=== PATIENT | male | born 2000 | race Two or more races ===

== ENCOUNTER → 2024-08-30 | Outpatient (CLI) | payer MEDICAID, SELFPAY ==
--- NOTE | 2024-08-30 09:00 | XR_ITS ---
Examination: Abdomen sonogram, complete Date and time of exam: August 30, 2024 0907 hours INDICATIONS: Diagnosis fatty liver 6 months ago. Technique: Multiple real-time grayscale transabdominal sonographic images of the abdomen have been obtained. Findings: Normal gallbladder Normal common bile duct 0.3 cm Pancreas obscured by bowel gas Aorta not enlarged Liver 15.6 cm fatty infiltration no focal liver lesions Normal hepatopedal portal venous flow Patent IVC Right kidney 11.7 x 4.8 x 4.7 cm cortex 1.4 cm Left kidney 10.1 x 5.4 x 5.9 cm cortex 1.4 cm No hydronephrosis or renal calculi Spleen 10.6 cm IMPRESSION: Fatty liver, no focal liver lesions
== END | disposition home or self-care (01) ==
PROVIDERS: PCP Nurse Practitioner Primary Care; Referring Provider Nurse Practitioner Primary Care; Visit Provider Nurse Practitioner Primary Care
DX: K76.0 Fatty (change of) liver, not elsewhere classified (principal)
CPT/HCPCS: 76700

== ENCOUNTER → 2025-07-11 | Outpatient (CLI) | payer MEDICAID, SELFPAY ==
--- NOTE | 2025-07-11 09:00 | XR_ITS ---
Examination: Abdomen sonogram, complete Date and time of exam: July 11, 2025, 0906 hours INDICATIONS: Diagnosis fatty liver. Technique: Multiple real-time grayscale transabdominal sonographic images of the abdomen have been obtained. Findings: Normal gallbladder Normal common bile duct 0.2 cm Pancreatic head 1.8 cm Aorta in the mid and distal aorta not enlarged Liver 12.6 cm smooth contour minimal fatty infiltration Normal hepatopetal portal venous flow Patent IVC Right kidney 9.4 cm renal cortex 1.8 cm Left kidney 10.7 cm renal cortex 2.3 cm No hydronephrosis or renal calculi Spleen 9.9 cm IMPRESSION: Normal gallbladder Normal common bile duct Liver normal size minimal fatty infiltration no focal liver lesions
== END | disposition home or self-care (01) ==
PROVIDERS: PCP Nurse Practitioner Primary Care; Referring Provider Nurse Practitioner Primary Care; Visit Provider Nurse Practitioner Primary Care
DX: K76.0 Fatty (change of) liver, not elsewhere classified (principal)
CPT/HCPCS: 76700